=== PATIENT | female | born 1985 | race Caucasian/White ===

== ENCOUNTER 2017-11-18 21:47 | Emergency (ER) | payer OTHER ==
[2017-11-18] MEDS ORDERED: Lactated Ringer's 1,000 ML IV STA (22:19)
[2017-11-18] MEDS ORDERED: Acetaminophen 160 mg/5 ml UD ONE (22:48)
--- NOTE | 2017-11-18 23:04 | ED PDOC ---
HPI: Psych/Substance Abuse Time Seen by Provider: 11/18/17 22:00 Chief Complaint (Nursing): Substance Abuse Chief Complaint (Provider): Substance Abuse ED Caveat: Intoxicated History Per: Patient, EMS History/Exam Limitations: intoxication Onset/Duration Of Symptoms: Mins Current Symptoms Are (Timing): Still Present Modifying Factor(s): Marijuana Additional Complaint(s): 32 year old female, with no medical problems, presents to the ED for marijuana intoxication. Patient reports she had eaten a brownie with marijuana at about 19:30 and felt light headed about an hour after eating. Since then, she has gotten progressively more and more dizzy, light headed, nauseous, weak, and inability to walk. Patient also reports she vomited prior to arrival. She states she has smoked marijuana in the past but has not eaten it. Denies alcohol or other illicit substance abuse, homicidal or suicidal ideation, or hallucinations. PMD: none provided Past Medical History Reviewed: Historical Data, Nursing Documentation, Vital Signs Vital Signs: Last Vital Signs Temp 98.1 F 11/18/17 21:49 Pulse 102 H 11/18/17 21:49 Resp 16 11/18/17 21:49 BP 123/82 11/18/17 21:49 Pulse Ox 100 11/18/17 21:49 - Medical History PMH: No Chronic Diseases - Surgical History Surgical History: No Surg Hx - Family History Family History: States: Diabetes, Hypertension - Social History Current smoker - smoking cessation education provided: No Alcohol: None - Allergies Allergies/Adverse Reactions: Allergies Allergy/AdvReac Type Severity Reaction Status Date / Time No Known Allergies Allergy Verified 11/18/17 22:18 Review of Systems ROS Statement: Except As Marked, All Systems Reviewed And Found Negative Gastrointestinal: Positive for: Nausea, Vomiting Neurological: Positive for: Weakness, Dizziness, Other (Light headed) Physical Exam - Reviewed Nursing Documentation Reviewed: Yes Vital Signs Reviewed: Yes - Physical Exam Appears: Positive for: In Acute Distress (Intoxicated and sleepy) Head Exam: Positive for: ATRAUMATIC, NORMOCEPHALIC Skin: Positive for: Warm, Dry Eye Exam: Positive for: EOMI, PERRL, Conjunctival injection ENT: Negative for: Pharyngeal Erythema, Tonsillar Exudate Neck: Positive for: Painless ROM, Supple Cardiovascular/Chest: Positive for: Regular Rate, Rhythm, Chest Non Tender Respiratory: Positive for: Normal Breath Sounds. Negative for: Respiratory Distress Gastrointestinal/Abdominal: Positive for: Soft. Negative for: Tenderness Back: Positive for: Normal Inspection. Negative for: Decreased ROM Extremity: Positive for: Normal ROM. Negative for: Deformity Neurologic/Psych: Positive for: Oriented (x3), Mood/Affect (normal mood and flat affect), Other (Sleepy). Negative for: Motor/Sensory Deficits - Laboratory Results Result Diagrams: 11/18/17 23:17 11/18/17 23:17 - ECG ECG Rhythm: Positive for: Normal QRS, Normal ST Segment, Sinus Rhythm Rate: 79 O2 Sat by Pulse Oximetry: 100 (RA) Pulse Ox Interpretation: Normal Medical Decision Making Medical Decision Making: Initial Impression: Marijuana intoxication Initial Plan: --Alcohol serum stat --CMP --CBC --Glucose routine --Lactated Ringers 1000mL IV --Pepcid 20mg IV --Zofran 8mg IV 24:[address] Stacy. Pending sobriety. Scribe Attestation: Documented by Rudolph Wood acting as a scribe for Elizabeth Ortiz MD. Provider Scribe Attestation: All medical record entries made by the Scribe were at my direction and personally dictated by me. I have reviewed the chart and agree that the record accurately reflects my personal performance of the history, physical exam, medic al decision making, and the department course for this patient. I have also personally directed, reviewed, and agree with the discharge instructions and disposition. Disposition - Clinical Impression Clinical Impression: Cannabis abuse - Disposition Disposition: Transfer of Care Disposition Time: 00:00 Condition: STABLE
[2017-11-18 23:25] LABS: BASO % 0.4 % (0.0-2.0); EOS % 0.4 % (0.0-4.0); HEMOGLOBIN 12.3 g/dL (12.0-16.0); LYMPH # 2.2 K/uL (1.0-4.3); LYMPH % 22.8 % (20.0-40.0); MEAN CELL VOLUME 79.2 fl (81.0-99.0); MEAN CORPUSCULAR HEMOGLOBIN 26.2 pg (27.0-31.0); MEAN CORPUSCULAR HGB CONC 33.1 g/dL (33.0-37.0); MEAN PLATELET VOLUME 8.6 fl (7.2-11.7); MONO # 0.5 K/uL (0.0-0.8); NEUT # 6.8 K/uL (1.8-7.0); NEUT % 71.4 % (50.0-75.0); RBC 4.68 Mil/uL (3.80-5.20); RED CELL DISTRIBUTION WIDTH 17.3 % (11.5-14.5); WHITE BLOOD COUNT 9.6 K/uL (4.8-10.8)
[2017-11-18 23:32] LABS: ALB/GLOB RATIO 1.3 (1.0-2.1); ALBUMIN 3.9 g/dL (3.5-5.0); ALT/SGPT 35 U/L (9-52); AST/SGOT 32 U/L (14-36); BLOOD UREA NITROGEN 17 mg/dl (7-17); CALCIUM 8.9 mg/dL (8.4-10.2); GFR NON-AFRICAN AMERICAN > 60
[2017-11-19] MEDS ORDERED: Dextrose 5%/Lactated Ringer's 1,000 ML IV SCH (00:15)
--- NOTE | 2017-11-19 00:44 | ED PDOC ---
- Laboratory Results Result Diagrams: 11/18/17 23:17 11/18/17 23:17 - ECG O2 Sat by Pulse Oximetry: 100 (RA) Medical Decision Making Medical Decision Makin:00 Patient signed out to this provider. Pending sobriety. 01:32 Upon reevaluation, patient is awake, alert, and oriented. Patient has steady gait and is stable for discharge. Scribe Attestation: Documented by Rudolph Wood acting as a scribe for Aurelio Stacy MD. Provider Scribe Attestation: All medical record entries made by the Scribe were at my direction and personally dictated by me. I have reviewed the chart and agree that the record accurately reflects my personal performance of the history, physical exam, medical decision making, and the department course for this patient. I have also personally directed, reviewed, and agree with the discharge instructions and disposition. Disposition - Clinical Impression Clinical Impression: Cannabis abuse - POA Present On Arrival: None Core Measure Indicators: Code Heart - Disposition Referrals: [facility] [Outside] Disposition: Routine/Home Disposition Time: 01:32 Condition: STABLE Instructions: Marijuana Use and Addiction Forms: [employer] (Chinese)
[2017-11-19 01:58] VITALS: BP 130/66; RESP 18; TEMP 97.9
[2017-11-19 04:48] VITALS: O2SAT 100
[2017-11-19 15:23] VITALS: PULSE 79
== END 2017-11-19 01:40 | disposition home or self-care (01) ==
LOC: H.ER 21:47
DX: F12.129 Cannabis abuse with intoxication, unspecified (principal)
CPT/HCPCS: 80053; 80320; 82948; 85025; 96361; 96374; 96375; 99282; J2405; J7120